=== PATIENT | female | born 1930 | race Caucasian/White ===

== ENCOUNTER 2018-08-14 12:37 | Inpatient (IN) | payer MEDICARE, OTHER ==
[~2018-08-14] VITALS: Ht 152.4 cm; Wt 40.9 kg
[2018-08-14 13:16] LABS: BASOPHILS % (AUTO) 0.4 % (0-1); EOSINOPHILS # (AUTO) 0.1 X10'3 (0-0.9); EOSINOPHILS % (AUTO) 1.1 % (0-6); HEMATOCRIT 39.1 % (35.0-45.0); LYMPHOCYTES # (AUTO) 1.1 X10'3 (1.1-4.8); MEAN CORPUSCULAR HEMOGLOBIN 28.1 PG (27.0-31.0); MEAN CORPUSCULAR HGB CONC 33.2 g/dL (33.0-36.5); MEAN CORPUSCULAR VOLUME 84.7 FL (78-98); MEAN PLATELET VOLUME 8.5 FL (7.4-10.4); MONOCYTES # (AUTO) 0.5 X10'3 (0-0.9); MONOCYTES % (AUTO) 8.3 % (2-12); NEUTROPHILS # (AUTO) 4.4 X10'3 (1.8-7.7); NEUTROPHILS % (AUTO) 72.2 % (42-75); PLATELET COUNT 171 X10'3 (140-440); RED BLOOD COUNT 4.61 X10'6 (4.20-5.60); RED CELL DISTRIBUTION WIDTH 12.9 % (11.5-14.5); WHITE BLOOD COUNT 6.1 X10'3 (4.5-11.0)
--- NOTE | 2018-08-14 13:16 | NUR ---
Patient declines pain medication at this time 05/28. Patient's friend/neighbor at bedside. Glez cath placed, patient tolerated well. urine sample collected and sent to lab.
[2018-08-14 13:22] LABS: INR 1.1 INR
[2018-08-14] MEDS ORDERED: ondansetron/PF 4mg/2ml inj IV PRN (13:25)
[2018-08-14] MEDS ORDERED: magnesium hydroxide 30ml (MOM) UD suspension PO PRN (13:25)
[2018-08-14] MEDS ORDERED: mag hydrox/Alum hydrox/simeth 30ml oral suspension PO PRN (13:25)
[2018-08-14] MEDS ORDERED: acetaminophen 325mg tablet PO PRN (13:25)
[2018-08-14] MEDS ORDERED: HYDROmorphone 1 mg/ml syringe IV PRN (13:25)
[2018-08-14 13:26] LABS: ALANINE AMINOTRANSFERASE 17 U/L (12-78); ALBUMIN 3.5 G/DL (3.4-5.0); ALBUMIN/GLOBULIN RATIO 1.2 (1.1-1.5); ALKALINE PHOSPHATASE 64 IU/L (46-116); ANION GAP 8 (8-16); ASPARTATE AMINO TRANSFERASE 20 U/L (10-37); BILIRUBIN,TOTAL 0.3 MG/DL (0.1-1.0); BLOOD UREA NITROGEN 21 MG/DL (7-18); BUN/CREATININE RATIO 28.8 (6.6-38.0); CALCIUM 9.3 MG/DL (8.5-10.1); CHLORIDE 107 MMOL/L (99-107); CREATININE 0.73 MG/DL (0.40-0.90); GLUCOSE 103 MG/DL (70-104); POTASSIUM 3.8 MMOL/L (3.5-5.1); SODIUM 143 MMOL/L (135-145); TOTAL CARBON DIOXIDE 27.6 MMOL/L (24-32); TOTAL PROTEIN 6.5 G/DL (6.4-8.2); eGFR 76 ML/MIN
[2018-08-14 13:36] LABS: CLARITY,URINE CLEAR (Clear); COLOR,URINE STRAW (Yellow); GLUCOSE, URINE NEGATIVE (Neg); KETONES,URINE TRACE mg/dl (Neg); LEUKOCYTE ESTERASE ,URINE NEGATIVE (Neg); NITRITES, URINE NEGATIVE (Neg); OCCULT BLOOD,URINE NEGATIVE (Neg); PH,URINE 6.5 (4.8-8.0); PROTEIN,URINE NEGATIVE (Neg); UA COLLECTION TYPE FOLEY CATH; UROBILINOGEN,URINE 0.2 E.U/dL (0.2-1.0)
[2018-08-14] MEDS: normal saline 1000ml 1,000 ML IV SCH (13:42)
[2018-08-14 13:55] LABS: PLATELET ESTIMATE NORMAL
[2018-08-14 13:57] LABS: ELLIPTOCYTES 1+; SCHISTOCYTES FEW
[2018-08-14] MEDS ORDERED: FERR325T32 PO (15:11)
[2018-08-14 18:00] VITALS: BP 158/86
[2018-08-14] MEDS: heparin, porcine 5000 units/ml vial SQ SCH (20:00)
[2018-08-14] MEDS: HYDROmorphone inj. 0.5 MG/0.5 ML DISP.SYRIN IV PRN (21:59)
[2018-08-14 22:00] VITALS: BP 157/75
[2018-08-15] VITALS (17 sets, daily range): BP systolic 91–171; BP diastolic 29–85
[2018-08-15] MEDS: normal saline 1000ml 1,000 ML IV SCH ×3 (03:37→21:38)
[2018-08-15] MEDS: HYDROmorphone inj. 0.5 MG/0.5 ML DISP.SYRIN IV PRN (04:30)
[2018-08-15 05:57] LABS: BASOPHILS % (AUTO) 0.4 % (0-1); EOSINOPHILS % (AUTO) 0.3 % (0-6); HEMATOCRIT 34.2 % (35.0-45.0); HEMOGLOBIN 11.7 g/dl (12.0-16.0); LYMPHOCYTES % (AUTO) 13.1 % (21-51); MEAN CORPUSCULAR HEMOGLOBIN 28.7 PG (27.0-31.0); MEAN CORPUSCULAR HGB CONC 34.3 g/dL (33.0-36.5); MEAN CORPUSCULAR VOLUME 83.7 FL (78-98); MEAN PLATELET VOLUME 8.4 FL (7.4-10.4); MONOCYTES # (AUTO) 0.6 X10'3 (0-0.9); MONOCYTES % (AUTO) 8.2 % (2-12); NEUTROPHILS # (AUTO) 6.1 X10'3 (1.8-7.7); PLATELET COUNT 153 X10'3 (140-440); RED BLOOD COUNT 4.09 X10'6 (4.20-5.60); RED CELL DISTRIBUTION WIDTH 12.5 % (11.5-14.5); WHITE BLOOD COUNT 7.8 X10'3 (4.5-11.0)
[2018-08-15 06:18] LABS: ALBUMIN 2.8 G/DL (3.4-5.0); ANION GAP 7 (8-16); BLOOD UREA NITROGEN 19 MG/DL (7-18); BUN/CREATININE RATIO 33.9 (6.6-38.0); CALCIUM 8.4 MG/DL (8.5-10.1); CHLORIDE 105 MMOL/L (99-107); CREATININE 0.56 MG/DL (0.40-0.90); GLUCOSE 117 MG/DL (70-104); POTASSIUM 3.5 MMOL/L (3.5-5.1); SODIUM 138 MMOL/L (135-145); TOTAL CARBON DIOXIDE 26.1 MMOL/L (24-32); eGFR > 90 ML/MIN
--- NOTE | 2018-08-15 06:27 | NUR ---
Received report from Belinda CASTANO
[2018-08-15] MEDS: heparin, porcine 5000 units/ml vial SQ SCH ×2 (07:30→20:00)
[2018-08-15 09:15] LABS: ANISOCYTOSIS 1+; MICROCYTOSIS 1+; PLATELET ESTIMATE NORMAL
--- NOTE | 2018-08-15 10:47 | NUR ---
Uriah from tele called and stated that patient had a 39BPM and had a ventricular stand still. Spoke to Aislinn about the situation. Will also let the hospitalist dr. Santos know. Paged Dr. santos and still have not received a call back. will speak to charge. Patient was getting vitals done at that time that anna called. Patient was alert and talking to the aid while they were taking her blood pressure.
[2018-08-15] MEDS ORDERED: ringers solution, lacted 1,000 ML IV SCH (15:41)
[2018-08-15] MEDS ORDERED: morphine 4 MG/ML inj SYRINge IV PRN ×2 (15:45)
[2018-08-15] MEDS ORDERED: proCHLORperazine 10 MG/2 ml inj IV PRN (15:45)
[2018-08-15] MEDS ORDERED: ondansetron/PF 4mg/2ml inj IV PRN (15:45)
[2018-08-15] MEDS ORDERED: meperidine/PF 25mg/ml syringe IV PRN ×3 (15:45)
[2018-08-15] MEDS ORDERED: fentaNYL/PF 50MCG/1 ML 2ML syringe ONE (15:51)
[2018-08-15] MEDS ORDERED: midazolam 2 mg/2 ml injection ONE (15:51)
[2018-08-15] MEDS ORDERED: propofol inj 20 ML IV ONE (16:30)
[2018-08-15] MEDS ORDERED: traMADol 50MG tablet PO PRN (16:35)
--- NOTE | 2018-08-15 16:40 | NUR ---
Received from OR via , accompanied by Anesthesiologist DR. MCGRAW and report given by Anesthesiolgist. PATIENT RESPOSNDS TO PAINFUL STIMUL, VSS CHARTED, ISLAND DRESSING TO LEFT HIP, DRESSING, CDI, SCD'S IN PLACE,[address], WILL CONTINUE TO MONITOR.
--- NOTE | 2018-08-15 16:50 | NUR ---
SENSATION NOTED AT L1
--- NOTE | 2018-08-15 16:50 | NUR ---
PATIENT AWAKE, A&O X4.
[2018-08-15] MEDS ORDERED: ceFAZolin 1GM/D5W- ADD-VANTAGE 50 ML IV ONE (17:00)
--- NOTE | 2018-08-15 17:30 | NUR ---
PATIENT MET, DISCHARGE CRITERIA. REPORT CALLED TO NORA CASTANO ON ORTHO, ALL QUESTIONS AND COCHERES ADDRESSED. VSS CHARTED, DRESSING TO RIGHT HIP CDI, PIC INFUSING IVF ORDERED, SCD'S IN PLACE, TRANSFERRED TO ORTHO ACCOMPANIED BY STAFF AND FAMILY.
[2018-08-15] MEDS: traMADol 50MG tablet PO PRN (21:38)
[2018-08-16] MEDS: ceFAZolin 1GM/D5W- ADD-VANTAGE 50 ML IV SCH ×2 (00:12→07:11)
[2018-08-16 02:00] VITALS: BP 168/69
--- NOTE | 2018-08-16 02:06 | NUR ---
PT COMPLAINED THAT SHE COULDN'T SLEEP BECAUSE THE LEGS THINGS ARE BOTHERING. SO I TOOK SCD OFF.
[2018-08-16] MEDS: traMADol 50MG tablet PO PRN (05:01)
[2018-08-16 06:00] VITALS: BP 116/71
--- NOTE | 2018-08-16 06:15 | NUR ---
Patient in room ORTHO 4021. I have received report from EYAD Trevino and had the opportunity to ask questions and assume patient care.
--- NOTE | 2018-08-16 06:21 | NUR ---
Problems reprioritized. Patient report given, questions answered & plan of care reviewed with EYAD ALARCON.
[2018-08-16] MEDS: normal saline 1000ml 1,000 ML IV SCH ×2 (07:02→16:31)
[2018-08-16 07:11] LABS: BASOPHILS % (AUTO) 0.2 % (0-1); EOSINOPHILS % (AUTO) 0.3 % (0-6); HEMATOCRIT 32.7 % (35.0-45.0); HEMOGLOBIN 11.1 g/dl (12.0-16.0); LYMPHOCYTES # (AUTO) 0.5 X10'3 (1.1-4.8); LYMPHOCYTES % (AUTO) 6.3 % (21-51); MEAN CORPUSCULAR HEMOGLOBIN 29.1 PG (27.0-31.0); MEAN CORPUSCULAR VOLUME 85.7 FL (78-98); MEAN PLATELET VOLUME 8.4 FL (7.4-10.4); MONOCYTES # (AUTO) 0.8 X10'3 (0-0.9); MONOCYTES % (AUTO) 9.5 % (2-12); NEUTROPHILS # (AUTO) 7.2 X10'3 (1.8-7.7); NEUTROPHILS % (AUTO) 83.7 % (42-75); PLATELET COUNT 136 X10'3 (140-440); RED BLOOD COUNT 3.82 X10'6 (4.20-5.60); RED CELL DISTRIBUTION WIDTH 12.5 % (11.5-14.5); WHITE BLOOD COUNT 8.6 X10'3 (4.5-11.0)
[2018-08-16] MEDS: heparin, porcine 5000 units/ml vial SQ SCH ×2 (07:11→20:44)
[2018-08-16 07:47] LABS: PLATELET ESTIMATE DECREASED; SCHISTOCYTES FEW
[2018-08-16 07:48] LABS: ELLIPTOCYTES FEW
[2018-08-16 07:49] LABS: MICROCYTOSIS FEW
--- NOTE | 2018-08-16 07:56 | NUR ---
PAGER ID: [phone] MESSAGE: Ms. Vallejo in room 4021A, was working with PT, had a seizure, tele called, multiple pauses between 3-4.5 secs. BP before seizure 162/92 HR 87, after 110/71 HR 89, Toya on ortho # [id number], thank you
--- NOTE | 2018-08-16 07:59 | NUR ---
Received call from MD, advised of pt status, details of seizure, tele report. No new orders received.
[2018-08-16 10:00] VITALS: BP 142/68
--- NOTE | 2018-08-16 11:23 | NUR ---
Student documentation: I have reviewed all interventions, assessments performed and documented by Lazara Nash. Student Medication Administration: For this medication-pass time frame, all medication were reviewed, dispensed, administered and documented per hospital policy by Lazara Nash.
[2018-08-16 18:00] VITALS: BP 167/86
--- NOTE | 2018-08-16 18:17 | NUR ---
Problems reprioritized. Patient report given, questions answered & plan of care reviewed with Elinor Loredo RN.
[2018-08-16 22:00] VITALS: BP 167/81
[2018-08-17] MEDS: normal saline 1000ml 1,000 ML IV SCH ×3 (03:00→22:48)
[2018-08-17 06:00] VITALS: BP 187/67
--- NOTE | 2018-08-17 06:02 | NUR ---
Problems reprioritized. Patient report given, questions answered & plan of care reviewed with EYAD Jean Baptiste.
--- NOTE | 2018-08-17 06:31 | NUR ---
Patient in room ORTHO 4021. I have received report from Elinor Lucas RN and had the opportunity to ask questions and assume patient care.
--- NOTE | 2018-08-17 06:59 | NUR ---
PAGER ID: [phone] MESSAGE: [id number] Misa Vallejo. Elevated BP 175/74, has no BP meds ordered. Also confused pulled IV out and tele is off, refusing to be back on. Ita [phone]
[2018-08-17 07:07] LABS: BASOPHILS % (AUTO) 0.1 % (0-1); EOSINOPHILS # (AUTO) 0.1 X10'3 (0-0.9); EOSINOPHILS % (AUTO) 0.6 % (0-6); HEMATOCRIT 33.5 % (35.0-45.0); HEMOGLOBIN 11.5 g/dl (12.0-16.0); LYMPHOCYTES # (AUTO) 0.7 X10'3 (1.1-4.8); MEAN CORPUSCULAR HEMOGLOBIN 28.8 PG (27.0-31.0); MEAN CORPUSCULAR HGB CONC 34.3 g/dL (33.0-36.5); MEAN PLATELET VOLUME 8.5 FL (7.4-10.4); MONOCYTES # (AUTO) 0.8 X10'3 (0-0.9); MONOCYTES % (AUTO) 9.7 % (2-12); NEUTROPHILS % (AUTO) 81.6 % (42-75); PLATELET COUNT 155 X10'3 (140-440); RED BLOOD COUNT 3.98 X10'6 (4.20-5.60); RED CELL DISTRIBUTION WIDTH 12.4 % (11.5-14.5); WHITE BLOOD COUNT 8.5 X10'3 (4.5-11.0)
[2018-08-17 07:29] LABS: PLATELET ESTIMATE NORMAL; SCHISTOCYTES FEW
[2018-08-17] MEDS ORDERED: hydrALAZINE 20mg/ml inj. IV PRN (07:35)
[2018-08-17] MEDS: heparin, porcine 5000 units/ml vial SQ SCH ×2 (08:00→20:22)
--- NOTE | 2018-08-17 08:00 | NUR ---
PAGER ID: [phone] MESSAGE: [id number] Misa Vallejo is refusing IV to be reinserted. Can we switch hydralazine IV to PO? Ita [phone]
--- NOTE | 2018-08-17 08:54 | NUR ---
Patient refusing IV to be reinserted. I explained the importance for it and that we need to give her IV BP medication because her BP is elevated. Patient is still refusing, I paged the hospitalist to let him know. Also patient is refusing Tele monitor. Will continue to encourage to comply with orders.
[2018-08-17 10:00] VITALS: BP 190/78
[2018-08-17] MEDS ORDERED: amLODIPine 5mg tablet PO ONE (10:05)
[2018-08-17] MEDS ORDERED: ceFAZolin inj. 2,000 MG in dextrose 5%-water 50ml 50 ML IV ONE (10:50)
[2018-08-17] MEDS ORDERED: ceFAZolin 2gm in dextrose, iso 100 ML IV ONE (10:55)
[2018-08-17] MEDS ORDERED: ceFAZolin 1000mg inj ONE (16:21)
[2018-08-17] MEDS ORDERED: midazolam 2 mg/2 ml injection ONE (16:21)
[2018-08-17] MEDS ORDERED: fentaNYL/PF 50MCG/1 ML 2ML syringe ONE (16:21)
[2018-08-17] MEDS ORDERED: lidocaine 1%/epinephrine 1:100,000 injection 50ml vial ONE (16:21)
[2018-08-17] MEDS ORDERED: cefazolin/dext.iso 2gm/100ml 100 ML IV ONE (16:22)
--- NOTE | 2018-08-17 16:40 | NUR ---
Patient currently going to Shovel Loader Operator for pacemaker placement now
[2018-08-17 18:00] VITALS: BP 109/64
--- NOTE | 2018-08-17 18:39 | NUR ---
Problems reprioritized. Patient report given, questions answered & plan of care reviewed with Ashly CASTANO.
[2018-08-17 22:00] VITALS: BP 137/66
[2018-08-18 06:00] VITALS: BP 134/59
--- NOTE | 2018-08-18 06:18 | NUR ---
Problems reprioritized. Patient report given, questions answered & plan of care reviewed with Ita CASTANO.
--- NOTE | 2018-08-18 06:25 | NUR ---
Patient in room ORTHO 4021. I have received report from Ashly CASTANO and had the opportunity to ask questions and assume patient care.
[2018-08-18 07:08] LABS: BASOPHILS % (AUTO) 0.3 % (0-1); EOSINOPHILS # (AUTO) 0.1 X10'3 (0-0.9); HEMATOCRIT 29.8 % (35.0-45.0); HEMOGLOBIN 10.4 g/dl (12.0-16.0); LYMPHOCYTES # (AUTO) 0.7 X10'3 (1.1-4.8); MEAN CORPUSCULAR HEMOGLOBIN 29.4 PG (27.0-31.0); MEAN CORPUSCULAR HGB CONC 34.9 g/dL (33.0-36.5); MEAN CORPUSCULAR VOLUME 84.3 FL (78-98); MEAN PLATELET VOLUME 8.5 FL (7.4-10.4); MONOCYTES # (AUTO) 0.7 X10'3 (0-0.9); MONOCYTES % (AUTO) 10.7 % (2-12); NEUTROPHILS # (AUTO) 4.7 X10'3 (1.8-7.7); PLATELET COUNT 170 X10'3 (140-440); RED BLOOD COUNT 3.54 X10'6 (4.20-5.60); RED CELL DISTRIBUTION WIDTH 12.7 % (11.5-14.5); WHITE BLOOD COUNT 6.2 X10'3 (4.5-11.0)
[2018-08-18 07:36] LABS: MICROCYTOSIS 1+; PLATELET ESTIMATE NORMAL
[2018-08-18 07:37] LABS: POIKILOCYTOSIS FEW; SCHISTOCYTES FEW
[2018-08-18] MEDS: heparin, porcine 5000 units/ml vial SQ SCH (08:00)
[2018-08-18 10:00] VITALS: BP 134/61
== END 2018-08-18 13:40 | DRG 481 ==
LOC: ER 12:37 → ORTHO 4S 15:15
PROVIDERS: ADMIT Family Medicine; ATTEND Family Medicine
PROC: 0QH606Z Insertion of Intramedullary Internal Fixation Device into Right Upper Femur, Open Approach (ICD-10-PCS; principal; 2018-08-15 15:51)
DX: S72.141A Displaced intertrochanteric fracture of right femur, initial encounter for closed fracture (principal); I44.2 Atrioventricular block, complete; D62 Acute posthemorrhagic anemia; I10 Essential (primary) hypertension; Z66 Do not resuscitate; R00.1 Bradycardia, unspecified; W01.0XXA Fall on same level from slipping, tripping and stumbling without subsequent striking against object, initial encounter; Z90.12 Acquired absence of left breast and nipple; Z88.8 Allergy status to other drugs, medicaments and biological substances; Z79.82 Long term (current) use of aspirin; Z92.21 Personal history of antineoplastic chemotherapy; Z92.3 Personal history of irradiation; Z85.3 Personal history of malignant neoplasm of breast; Z87.891 Personal history of nicotine dependence; Y93.89 Activity, other specified; Y92.89 Other specified places as the place of occurrence of the external cause; Y99.8 Other external cause status
CPT/HCPCS: 36415; 71045; 73502; 76000; 80048; 80053; 81003; 85025; 85610; 86885; 86900; 86901; 87070; 93005; 93306; 97116; 97163; 97530; 99285; A6222; A6454; A7000; C1713; G0378; J0690; J1170; J1644; J2250; J2704; J3010; J3370; J3490; J7030; J7120

== ENCOUNTER 2019-02-03 19:12 | Inpatient (IN) | payer MEDICARE, OTHER ==
[~2019-02-03] VITALS: Ht 152.4 cm; Wt 39.5 kg
[~2019-02-03 19:12] MED LIST: FERR325T32 PO
--- NOTE | 2019-02-03 19:37 | NUR ---
PT FELL 2 DAYS AGO
--- NOTE | 2019-02-03 20:26 | NUR ---
PT TO XR VIA [facility] IN STABLE CONDITION.
[2019-02-03 20:34] LABS: BASOPHILS % (AUTO) 0.3 % (0-1); EOSINOPHILS % (AUTO) 0.1 % (0-6); HEMATOCRIT 39.1 % (35.0-45.0); HEMOGLOBIN 13.2 g/dl (12.0-16.0); LYMPHOCYTES # (AUTO) 0.9 X10'3 (1.1-4.8); LYMPHOCYTES % (AUTO) 11.7 % (21-51); MEAN CORPUSCULAR HEMOGLOBIN 28.9 PG (27.0-31.0); MEAN CORPUSCULAR HGB CONC 33.6 g/dL (33.0-36.5); MEAN CORPUSCULAR VOLUME 85.8 FL (78-98); MEAN PLATELET VOLUME 8.1 FL (7.4-10.4); MONOCYTES # (AUTO) 0.7 X10'3 (0-0.9); MONOCYTES % (AUTO) 8.3 % (2-12); NEUTROPHILS # (AUTO) 6.3 X10'3 (1.8-7.7); NEUTROPHILS % (AUTO) 79.6 % (42-75); PLATELET COUNT 215 X10'3 (140-440); RED BLOOD COUNT 4.56 X10'6 (4.20-5.60); RED CELL DISTRIBUTION WIDTH 14.6 % (11.5-14.5); WHITE BLOOD COUNT 7.9 X10'3 (4.5-11.0)
[2019-02-03 20:55] LABS: ALANINE AMINOTRANSFERASE 31 U/L (12-78); ALBUMIN 4.1 G/DL (3.4-5.0); ALBUMIN/GLOBULIN RATIO 0.9 (1.1-1.5); ALKALINE PHOSPHATASE 94 IU/L (46-116); ANION GAP 10 (8-16); ASPARTATE AMINO TRANSFERASE 41 U/L (10-37); BILIRUBIN,TOTAL 0.9 MG/DL (0.1-1.0); BLOOD UREA NITROGEN 28 MG/DL (7-18); BUN/CREATININE RATIO 43.1 (6.6-38.0); CALCIUM 9.5 MG/DL (8.5-10.1); CHLORIDE 104 MMOL/L (99-107); CREATININE 0.65 MG/DL (0.40-0.90); GLUCOSE 106 MG/DL (70-104); POTASSIUM 3.7 MMOL/L (3.5-5.1); SODIUM 143 MMOL/L (135-145); TOTAL CARBON DIOXIDE 28.8 MMOL/L (24-32); TOTAL PROTEIN 8.6 G/DL (6.4-8.2); eGFR 86 ML/MIN
[2019-02-03] MEDS ORDERED: NO HOME MEDS (21:02)
[2019-02-03 21:19] LABS: CLARITY,URINE CLEAR (Clear); COLOR,URINE YELLOW (Yellow); GLUCOSE, URINE NEGATIVE (Neg); KETONES,URINE 15 mg/dl (Neg); LEUKOCYTE ESTERASE ,URINE NEGATIVE (Neg); NITRITES, URINE NEGATIVE (Neg); OCCULT BLOOD,URINE NEGATIVE (Neg); PROTEIN,URINE TRACE mg/dl (Neg)
[2019-02-03] MEDS ORDERED: ringers solution, lactated 1000ml IV soln IV ONE (21:25)
[2019-02-03 21:33] LABS: UA COLLECTION TYPE STRAIGHT CATH
[2019-02-03 21:35] LABS: BACTERIA,URINE NONE SEEN /HPF (Neg); RBC,URINE 0-2 /HPF (0-2); SQUAMOUS EPITHELIAL CELL,UR FEW /LPF (FEW); WBC,URINE NONE SEEN /HPF (0-4)
--- NOTE | 2019-02-03 21:49 | NUR ---
ONI NARVAEZ MANAGER INVENTORY [phone]
--- NOTE | 2019-02-03 22:30 | NUR ---
INITIATED TELE NEURO CONSULT.
--- NOTE | 2019-02-03 22:42 | NUR ---
BACK FROM CT AND XRAY IN STABLE CONDITION
[2019-02-03] MEDS ORDERED: HYDROcodone/acetaminophen 10/325mg tab PO PRN (23:30)
[2019-02-03] MEDS ORDERED: mag hydrox/Alum hydrox/simeth 30ml oral suspension PO PRN (23:30)
[2019-02-03] MEDS ORDERED: ondansetron/PF 4mg/2ml inj IV PRN (23:30)
[2019-02-03] MEDS ORDERED: magnesium hydroxide 30ml (MOM) UD suspension PO PRN (23:30)
[2019-02-03] MEDS ORDERED: acetaminophen 325mg tablet PO PRN ×2 (23:30)
[2019-02-03] MEDS ORDERED: HYDROcodone/acetaminophen 5mg/325mg tablet PO PRN (23:30)
--- NOTE | 2019-02-04 00:12 | NUR ---
Patient in room ED 4. I have received report from EYAD Burnett and had the opportunity to ask questions and assume patient care.
[2019-02-04 00:30] VITALS: BP 155/75
[2019-02-04] MEDS: normal saline 1000ml 1,000 ML IV SCH ×3 (00:39→23:25)
[2019-02-04 06:00] VITALS: BP 160/67
--- NOTE | 2019-02-04 06:15 | NUR ---
Patient in room ORTHO 4022. I have received report from and had the opportunity to ask questions and assume patient care EYAD Vega.
[2019-02-04 06:17] LABS: BASOPHILS % (AUTO) 0.4 % (0-1); EOSINOPHILS % (AUTO) 0.4 % (0-6); HEMATOCRIT 30.8 % (35.0-45.0); HEMOGLOBIN 10.5 g/dl (12.0-16.0); LYMPHOCYTES # (AUTO) 1.1 X10'3 (1.1-4.8); LYMPHOCYTES % (AUTO) 16.5 % (21-51); MEAN CORPUSCULAR HEMOGLOBIN 29.1 PG (27.0-31.0); MEAN CORPUSCULAR HGB CONC 34.1 g/dL (33.0-36.5); MEAN CORPUSCULAR VOLUME 85.2 FL (78-98); MEAN PLATELET VOLUME 8.2 FL (7.4-10.4); MONOCYTES # (AUTO) 0.9 X10'3 (0-0.9); NEUTROPHILS # (AUTO) 4.7 X10'3 (1.8-7.7); NEUTROPHILS % (AUTO) 69.7 % (42-75); PLATELET COUNT 176 X10'3 (140-440); RED BLOOD COUNT 3.62 X10'6 (4.20-5.60); RED CELL DISTRIBUTION WIDTH 14.2 % (11.5-14.5); WHITE BLOOD COUNT 6.7 X10'3 (4.5-11.0)
[2019-02-04 06:36] LABS: ALBUMIN 2.9 G/DL (3.4-5.0); ANION GAP 10 (8-16); BLOOD UREA NITROGEN 23 MG/DL (7-18); BUN/CREATININE RATIO 45.1 (6.6-38.0); CALCIUM 8.2 MG/DL (8.5-10.1); CHLORIDE 108 MMOL/L (99-107); CREATININE 0.51 MG/DL (0.40-0.90); GLUCOSE 89 MG/DL (70-104); POTASSIUM 3.1 MMOL/L (3.5-5.1); SODIUM 144 MMOL/L (135-145); TOTAL CARBON DIOXIDE 25.6 MMOL/L (24-32); eGFR > 90 ML/MIN
--- NOTE | 2019-02-04 06:52 | NUR ---
Problems reprioritized. Patient report given, questions answered & plan of care reviewed with EYAD Benavides.
[2019-02-04] MEDS: enoxaparin 40mg/0.4ml syringe SUBCUT SCH (08:43)
[2019-02-04] MEDS ORDERED: magnesium 4gm in 100ml NS 100 ML IV PRN (10:25)
[2019-02-04] MEDS ORDERED: potassium Cl 20 mEq SR tablet PO PRN (10:25)
[2019-02-04] MEDS ORDERED: potassium CL 10mEq/100ml bag 100 ML IV PRN (10:25)
[2019-02-04] MEDS ORDERED: magnesium Cl slow-release 64mg tablet PO PRN (10:25)
[2019-02-04] MEDS: potassium Cl 20 mEq SR tablet PO PRN ×3 (12:06→20:29)
--- NOTE | 2019-02-04 16:09 | NUR ---
Malnutrition consult: "15 pound wt loss pt/fam ed". Pt admit s/p fall hx recent fall in July w/ hip fx. Current vertebral compression fx per MD note. Pt PO 25-50% avg first meal. Pt seen by LYNNE and reports UBW prior to fx in July 90#; current wt 88#. Pt is small stature but reports strong appetite usually eats meals at rehab including snacks when she feels like and enjoys ensures TIDWM. Pt has no severe signs of muscle/fat wasting. At this time pt does not meet malnutrition criteria. Ensure ONS coupons provided given pt healing needs and buys frequently. Pt agrees to cottage cheese w/ fruit at breakfast and ensure enlive TIDWM; MD notified pending verification prior to sending on trays. Dietary notified. Pt reports not trouble chewing/swallowing and no food allergies. Will continue to monitor. Addendum: 02/04/19 at [address] Amended: Links added.
[2019-02-04 18:00] VITALS: BP 127/46
[2019-02-04] MEDS: lactose-reduced food (Ensure Enlive) - 237ml bottle PO SCH (18:00)
--- NOTE | 2019-02-04 18:25 | NUR ---
Received report from EYAD Benavides, assumed patient care.
--- NOTE | 2019-02-04 18:32 | NUR ---
Problems reprioritized. Patient report given, questions answered & plan of care reviewed with EYAD Winkler.
[2019-02-04 22:00] VITALS: BP 126/57
[2019-02-04] MEDS ORDERED: aspirin 81mg tab.chew PO ONE (23:00)
[2019-02-05 06:00] VITALS: BP 165/71
[2019-02-05 06:13] LABS: BASOPHILS % (AUTO) 0.3 % (0-1); EOSINOPHILS # (AUTO) 0.1 X10'3 (0-0.9); EOSINOPHILS % (AUTO) 1.1 % (0-6); HEMATOCRIT 30.5 % (35.0-45.0); HEMOGLOBIN 10.5 g/dl (12.0-16.0); LYMPHOCYTES # (AUTO) 1.2 X10'3 (1.1-4.8); LYMPHOCYTES % (AUTO) 18.2 % (21-51); MEAN CORPUSCULAR HEMOGLOBIN 29.3 PG (27.0-31.0); MEAN CORPUSCULAR HGB CONC 34.3 g/dL (33.0-36.5); MEAN CORPUSCULAR VOLUME 85.4 FL (78-98); MEAN PLATELET VOLUME 8.3 FL (7.4-10.4); MONOCYTES # (AUTO) 0.9 X10'3 (0-0.9); MONOCYTES % (AUTO) 13.6 % (2-12); NEUTROPHILS # (AUTO) 4.3 X10'3 (1.8-7.7); NEUTROPHILS % (AUTO) 66.8 % (42-75); PLATELET COUNT 163 X10'3 (140-440); RED BLOOD COUNT 3.58 X10'6 (4.20-5.60); RED CELL DISTRIBUTION WIDTH 14.5 % (11.5-14.5); WHITE BLOOD COUNT 6.5 X10'3 (4.5-11.0)
--- NOTE | 2019-02-05 06:13 | NUR ---
Patient report given, questions answered and plan of care reviewed with EYAD Valadez.
--- NOTE | 2019-02-05 06:34 | NUR ---
received report from Kaylene CASTANO
[2019-02-05 06:35] LABS: ALBUMIN 2.6 G/DL (3.4-5.0); ANION GAP 8 (8-16); BLOOD UREA NITROGEN 12 MG/DL (7-18); BUN/CREATININE RATIO 22.6 (6.6-38.0); CALCIUM 8.3 MG/DL (8.5-10.1); CHLORIDE 112 MMOL/L (99-107); CHOL/HDL RATIO 2.7 (0.00-4.99); CHOLESTEROL 189 MG/DL (0-200); CREATININE 0.53 MG/DL (0.40-0.90); GLUCOSE 94 MG/DL (70-104); HDL CHOLESTEROL 71 MG/DL (35-60); LDL CHOLESTEROL 97 MG/DL (50-100); POTASSIUM 3.6 MMOL/L (3.5-5.1); SODIUM 146 MMOL/L (135-145); TOTAL CARBON DIOXIDE 26.3 MMOL/L (24-32); TRIGLYCERIDES 74 MG/DL (20-135); eGFR > 90 ML/MIN
[2019-02-05] MEDS: lactose-reduced food (Ensure Enlive) - 237ml bottle PO SCH ×3 (08:00→18:00)
[2019-02-05] MEDS: aspirin 81mg tab.chew PO SCH (08:12)
[2019-02-05] MEDS: atorvastatin 20mg tablet PO SCH (08:12)
[2019-02-05] MEDS: enoxaparin 40mg/0.4ml syringe SUBCUT SCH (08:18)
--- NOTE | 2019-02-05 08:45 | NUR ---
Patient in room ORTHO 4022. I have received report from aleena whitten and had the opportunity to ask questions and assume patient care.
[2019-02-05] MEDS: normal saline 1000ml 1,000 ML IV SCH ×2 (08:55→14:00)
[2019-02-05 10:00] VITALS: BP_SYST 140; BP_SYST 154; BP_DIAS 57; BP_DIAS 97
[2019-02-05 18:00] VITALS: BP 150/65
--- NOTE | 2019-02-05 18:00 | NUR ---
Problems reprioritized. Patient report given, questions answered & plan of care reviewed with CHUCHO CASTANO.
[2019-02-05 22:00] VITALS: BP 170/92
[2019-02-06] MEDS: normal saline 1000ml 1,000 ML IV SCH ×2 (01:29→11:32)
[2019-02-06 05:46] LABS: BASOPHILS % (AUTO) 0.5 % (0-1); EOSINOPHILS # (AUTO) 0.1 X10'3 (0-0.9); EOSINOPHILS % (AUTO) 1.9 % (0-6); HEMATOCRIT 29.9 % (35.0-45.0); HEMOGLOBIN 10.3 g/dl (12.0-16.0); LYMPHOCYTES # (AUTO) 1.2 X10'3 (1.1-4.8); MEAN CORPUSCULAR HEMOGLOBIN 29.4 PG (27.0-31.0); MEAN CORPUSCULAR HGB CONC 34.3 g/dL (33.0-36.5); MEAN CORPUSCULAR VOLUME 85.7 FL (78-98); MEAN PLATELET VOLUME 8.1 FL (7.4-10.4); MONOCYTES # (AUTO) 0.7 X10'3 (0-0.9); MONOCYTES % (AUTO) 12.8 % (2-12); NEUTROPHILS # (AUTO) 3.7 X10'3 (1.8-7.7); NEUTROPHILS % (AUTO) 64.8 % (42-75); PLATELET COUNT 172 X10'3 (140-440); RED BLOOD COUNT 3.49 X10'6 (4.20-5.60); RED CELL DISTRIBUTION WIDTH 14.3 % (11.5-14.5); WHITE BLOOD COUNT 5.8 X10'3 (4.5-11.0)
[2019-02-06 06:04] LABS: ALBUMIN 2.6 G/DL (3.4-5.0); ANION GAP 8 (8-16); BLOOD UREA NITROGEN 13 MG/DL (7-18); CHLORIDE 110 MMOL/L (99-107); CREATININE 0.52 MG/DL (0.40-0.90); GLUCOSE 96 MG/DL (70-104); POTASSIUM 3.5 MMOL/L (3.5-5.1); SODIUM 145 MMOL/L (135-145); TOTAL CARBON DIOXIDE 27.4 MMOL/L (24-32); eGFR > 90 ML/MIN
[2019-02-06 06:55] VITALS: BP 149/66
[2019-02-06] MEDS: aspirin 81mg tab.chew PO SCH (07:57)
[2019-02-06] MEDS: enoxaparin 40mg/0.4ml syringe SUBCUT SCH (07:58)
[2019-02-06] MEDS: atorvastatin 20mg tablet PO SCH (07:58)
[2019-02-06] MEDS: lactose-reduced food (Ensure Enlive) - 237ml bottle PO SCH ×2 (07:58→13:51)
[2019-02-06 10:47] VITALS: BP 135/58
== END 2019-02-06 15:30 | DRG 542 ==
LOC: ER 19:13 → ED HOLD 23:29 → ORTHO 4S 02-04 00:15
PROVIDERS: ADMIT Hospitalist; ATTEND Family Medicine
DX: M48.56XA Collapsed vertebra, not elsewhere classified, lumbar region, initial encounter for fracture (principal); E43 Unspecified severe protein-calorie malnutrition; E86.0 Dehydration; Z66 Do not resuscitate; W01.0XXA Fall on same level from slipping, tripping and stumbling without subsequent striking against object, initial encounter; Z60.2 Problems related to living alone; Y93.01 Activity, walking, marching and hiking; Y92.89 Other specified places as the place of occurrence of the external cause; Y99.8 Other external cause status; Z88.5 Allergy status to narcotic agent; Z85.3 Personal history of malignant neoplasm of breast
CPT/HCPCS: 36415; 70450; 70544; 70547; 70551; 71045; 72125; 72131; 72170; 72192; 72220; 80048; 80053; 80061; 81001; 84443; 85025; 87081; 93005; 96360; 97110; 97116; 97162; 97530; 99285; G0378; J1650; J7030; J7120

== ENCOUNTER 2020-08-07 09:07 | Emergency (ER) | payer MEDICARE, OTHER ==
[~2020-08-07] VITALS: Ht 152.4 cm; Wt 33.2 kg
[~2020-08-07 09:07] MED LIST changes: -FERR325T32 PO; +NO HOME MEDS
[2020-08-07 10:03] LABS: BASOPHILS % (AUTO) 1.1 % (0-1); MEAN PLATELET VOLUME 8.5 FL (7.4-10.4); MONOCYTES # (AUTO) 0.5 X10'3 (0-0.9)
[2020-08-07 10:05] LABS: EOSINOPHILS % (AUTO) 0.4 % (0-6); LYMPHOCYTES % (AUTO) 24.3 % (21-51); MEAN CORPUSCULAR HEMOGLOBIN 17.4 PG (27.0-31.0); MEAN CORPUSCULAR HGB CONC 28.6 g/dL (33.0-36.5); MEAN CORPUSCULAR VOLUME 60.7 FL (78-98); MONOCYTES % (AUTO) 11.8 % (2-12); NEUTROPHILS # (AUTO) 2.6 X10'3 (1.8-7.7); NEUTROPHILS % (AUTO) 62.4 % (42-75); PLATELET COUNT 233 X10'3 (140-440); RED BLOOD COUNT 3.33 X10'6 (4.20-5.60); WHITE BLOOD COUNT 4.1 X10'3 (4.5-11.0)
[2020-08-07 10:13] LABS: HEMATOCRIT 20.2 % (35.0-45.0); HEMOGLOBIN 5.8 g/dl (12.0-16.0)
[2020-08-07 10:16] LABS: ALANINE AMINOTRANSFERASE 15 U/L (12-78); ALBUMIN 3.5 G/DL (3.4-5.0); ALBUMIN/GLOBULIN RATIO 1.1 (1.1-1.5); ALKALINE PHOSPHATASE 55 IU/L (46-116); ANION GAP 7 (8-16); ASPARTATE AMINO TRANSFERASE 21 U/L (10-37); BILIRUBIN,TOTAL 0.3 MG/DL (0.1-1.0); BLOOD UREA NITROGEN 28 MG/DL (7-18); BUN/CREATININE RATIO 37.3 (6.6-38.0); CALCIUM 8.9 MG/DL (8.5-10.1); CHLORIDE 110 MMOL/L (99-107); CREATININE 0.75 MG/DL (0.40-0.90); GLUCOSE 84 MG/DL (70-104); POTASSIUM 4.3 MMOL/L (3.5-5.1); SODIUM 144 MMOL/L (135-145); TOTAL CARBON DIOXIDE 27.4 MMOL/L (24-32); TOTAL PROTEIN 6.7 G/DL (6.4-8.2); eGFR 73 ML/MIN
[2020-08-07 10:35] LABS: ANISOCYTOSIS 3+; MICROCYTOSIS 2+; PLATELET ESTIMATE NORMAL; TOTAL CELLS COUNTED 100
[2020-08-07 10:36] LABS: HYPOCHROMASIA 2+
[2020-08-07 10:37] LABS: ELLIPTOCYTES 1+; SCHISTOCYTES FEW
[2020-08-07 11:12] VITALS: BP 138/60
[2020-08-07 11:40] VITALS: BP 147/48
--- NOTE | 2020-08-07 11:44 | NUR ---
PT KIKI BLOOD WELL AT THIS TIME
[2020-08-07 12:40] VITALS: BP 143/69
[2020-08-07 12:46] VITALS: BP 143/69
[2020-08-07 15:49] LABS: OCCULT BLOOD STOOL NEGATIVE (Neg)
--- NOTE | 2020-08-08 06:59 | NUR ---
NOTIFIED BY LAB THAT PTS BLOOD TRANSFUSSION RECORD HAD NOT BEEN COMPLETED. ABLE TO CHART THE END TIME. DIANE RN (THIS BOX [employer]ING [employer]AME BUILDER) WAS AT LUNCH WHEN TRANSFUSION WAS FINISHED AND PT WAS DC.
== END 2020-08-07 14:09 | disposition home or self-care (01) ==
LOC: ER 09:08
DX: D64.9 Anemia, unspecified (principal); R53.1 Weakness; Z85.3 Personal history of malignant neoplasm of breast; Z98.890 Other specified postprocedural states; Z60.2 Problems related to living alone; Z88.5 Allergy status to narcotic agent
CPT/HCPCS: 36415; 36430; 80053; 82272; 85007; 85025; 86885; 86900; 86901; 86920; 99291; P9016